=== PATIENT | female | born 1985 | race African-American/Black ===

== ENCOUNTER 2016-04-24 07:18 | Emergency (ER) | payer BC, OTHER ==
[~2016-04-24] VITALS: Ht 152.4 cm; Wt 43.5 kg
[~2016-04-24 07:18] MED LIST: ACET500T33 PO; HYDR-971 PO; NAPR550T PO; ORPH100T PO; bc powder PO
[2016-04-24 07:37] LABS: BILIRUBIN,URINE NEGATIVE (NEG); GLUCOSE,URINE NEGATIVE (NEG); NITRITE,URINE NEGATIVE (NEG); PH,URINE 5.5; PROTEIN,URINE NEGATIVE (NEG-TRACE); UROBILINOGEN,URINE 0.2 mg/dL (0.2 mg/dL)
[2016-04-24] MEDS ORDERED: PANTOPRAZOLE 40 MG TABLET. PO ONE (07:45)
[2016-04-24] MEDS ORDERED: ONDANSETRON ODT 4 MG TAB.RAPDIS PO ONE (07:45)
--- NOTE | 2016-04-24 07:51 | PHYS DOC ---
Past Medical History Past Medical History: No Pertinent History Past Surgical History: Tubal ligation Alcohol Use: Occasionally Drug Use: None Adult General Chief Complaint Chief Complaint: ABDOMINAL PAIN HPI HPI Patient is a 31 year old female presents to the emergency department with a history of right upper quadrant abdominal pain that is sharp in nature and radiates into her back. Patient states she has not taken anything for the pain. She states she thought she was going to have diarrhea today but had a normal stool. Patient states she was nauseated although she caused herself to vomit by placing her finger into her throat. She states she did not have any relief after vomiting. Patient states she had fried pork chops last night. Patient also states she tried to cereal this morning but when she vomited this is what came up. She denies fever, or chills. Review of Systems Review of Systems Constitutional: Denies fever or chills [] Eyes: Denies change in visual acuity, redness, or eye pain [] HENT: Denies nasal congestion or sore throat [] Respiratory: Denies cough or shortness of breath [] Cardiovascular: No additional information not addressed in HPI [] GI: abdominal pain, nausea, caused herself to vomit today, denies bloody stools or diarrhea [] : Denies dysuria or hematuria [] Musculoskeletal: Denies back pain or joint pain [] Integument: Denies rash or skin lesions [] Neurologic: Denies headache, focal weakness or sensory changes [] Current Medications Current Medications Current Medications Medications (Trade) Dose Ordered Sig/Maciej Start Time Stop Time Status Last Admin Dose Admin Azithromycin (Zithromax) 1,000 mg 1X ONCE 04/24/16 08:30 04/24/16 08:31 DC Ceftriaxone Sodium (Rocephin Im) 250 mg 1X ONCE 04/24/16 08:30 04/24/16 08:31 DC Lidocaine HCl (Xylocaine-Mpf 1% Vial) 2 ml STK-MED ONCE 04/24/16 08:31 04/24/16 08:32 DC Metronidazole (Flagyl) 2,000 mg 1X ONCE 04/24/16 08:30 04/24/16 08:31 DC Ondansetron HCl (Zofran Odt) 4 mg 1X ONCE 04/24/16 07:45 04/24/16 07:46 DC 04/24/16 07:49 4 MG Pantoprazole Sodium (Protonix) 40 mg 1X ONCE 04/24/16 07:45 04/24/16 07:46 DC 04/24/16 07:51 40 MG Allergies Allergies Allergies Coded Allergies Type Severity Reaction Last Updated Verified Sulfa (Sulfonamide Antibiotics) Allergy Intermediate hives 04/21/14 Yes meperidine Adverse Reaction Intermediate hallucinations 04/24/16 Yes Physical Exam Physical Exam Constitutional: Well developed, well nourished, no acute distress, non-toxic appearance. [] HENT: Normocephalic, atraumatic, bilateral external ears normal, oropharynx moist, no oral exudates, nose normal. [] Eyes: PERRLA, EOMI, conjunctiva normal, no discharge. [] Neck: Normal range of motion, no tenderness, supple, no stridor. [] Cardiovascular:Heart rate regular rhythm, no murmur [] Lungs & Thorax: Bilateral breath sounds clear to auscultation [] Abdomen: Bowel sounds hypoactive, soft, right upper quadrant tenderness, no masses, no pulsatile masses. No rebound tenderness, no guarding noted Skin: Warm, dry, no erythema, no rash. [] Back: No tenderness Extremities: No tenderness, no cyanosis, no clubbing, ROM intact, no edema. [] Neurologic: Alert and oriented X 3, normal motor function, normal sensory function, no focal deficits noted. [] Psychologic: Affect normal, judgement normal, mood normal. [] Current Patient Data Vital Signs Vital Signs Date Time Temp Pulse Resp B/P Pulse Ox O2 Delivery O2 Flow Rate FiO2 04/24/16 07:31 98.2 99 16 116/80 100 Room Air 98.2 Lab Values Laboratory Tests Test 04/24/16 07:22 04/24/16 07:40 Urine Collection Type Void Urine Color Yellow Urine Clarity Cloudy Urine pH 5.5 Urine Specific [place] 1.025 Urine Protein Negativemg/dL (NEG-TRACE) Urine Glucose (UA) Negativemg/dL (NEG) Urine Ketones (Stick) Negativemg/dL (NEG) Urine Blood Negative (NEG) Urine Nitrite Negative (NEG) Urine Bilirubin Negative (NEG) Urine Urobilinogen Dipstick 0.2mg/dL (0.2 mg/dL) Urine Leukocyte Esterase Large (NEG) Urine RBC 1-2/HPF (0-2) Urine WBC 11-20/HPF (0-4) Urine Squamous Epithelial Cells Many/LPF Urine Bacteria Moderate/HPF (0-FEW) Urine Mucus Marked/LPF Urine Trichomonas Present Urine Test Negative (NEG) White Blood Count 7.2x10^3/uL (4.0-11.0) Red Blood Count 4.43x10^6/uL (3.50-5.40) Hemoglobin 11.5g/dL (12.0-15.5) L Hematocrit 36.9% (36.0-47.0) Mean Corpuscular Volume 83fL (79-100) Mean Corpuscular Hemoglobin 26pg (25-35) Mean Corpuscular Hemoglobin Concent 31g/dL (31-37) Red Cell Distribution Width 15.2% (11.5-14.5) H Platelet Count 303x10^3/uL (140-400) Neutrophils (%) (Auto) 83% (31-73) H Lymphocytes (%) (Auto) 10% (24-48) L Monocytes (%) (Auto) 6% (0-9) Eosinophils (%) (Auto) 0% (0-3) Basophils (%) (Auto) 0% (0-3) Neutrophils # (Auto) 6.0x10^3uL (1.8-7.7) Lymphocytes # (Auto) 0.7x10^3/uL (1.0-4.8) L Monocytes # (Auto) 0.4x10^3/uL (0.0-1.1) Eosinophils # (Auto) 0.0x10^3/uL (0.0-0.7) Basophils # (Auto) 0.0x10^3/uL (0.0-0.2) Sodium Level 144mmol/L (136-145) Potassium Level 3.7mmol/L (3.5-5.1) Chloride Level 108mmol/L (98-107) H Carbon Dioxide Level 25mmol/L (21-32) Anion Gap 11 (6-14) Blood Urea Nitrogen 24mg/dL (7-20) H Creatinine 0.6mg/dL (0.6-1.0) Estimated GFR (Cockcroft-Gault) 140.2 BUN/Creatinine Ratio 40 (6-20) H Glucose Level 97mg/dL (70-99) Calcium Level 9.4mg/dL (8.5-10.1) Total Bilirubin 0.5mg/dL (0.2-1.0) Aspartate Amino Transferase (AST) 17U/L (15-37) Alanine Aminotransferase (ALT) 16U/L (14-59) Alkaline Phosphatase 73U/L (46-116) Total Protein 8.5g/dL (6.4-8.2) H Albumin 4.2g/dL (3.4-5.0) Albumin/Globulin Ratio 1.0 (1.0-1.7) Amylase Level 79U/L (25-115) Lipase 125U/L (73-393) Laboratory Tests 04/24/16 07:40 Laboratory Tests 04/24/16 07:40 EKG EKG [] Radiology/Procedures Radiology/Procedures [facility] [address] [place] [address] IMAGING REPORT Signed PATIENT: QUITA RICHARDS ACCOUNT: [id number] : 1985 LOCATION: ER AGE: 31 SEX: F EXAM STATUS: REG ER ORD. PHYSICIAN: ELVIRA RUSSO NP REASON: abdominal pain right side mainly upper quadrant PROCEDURE: ABDOMEN LTD Right upper quadrant abdominal ultrasound, 04/24/2016: History: Pain The gallbladder is within normal limits in size. There is no sonographic evidence of cholelithiasis. The gallbladder saldivar are not thickened. No bile duct dilatation is seen. The visualized portions of the liver, pancreas and right kidney are unremarkable. IMPRESSION: No significant abnormality is detected. DICTATED and SIGNED BY: PACHECO CESAR MD DATE: 04/24/16 0810 CC: ELVIRA RUSSO [employer]; UNKNOWN PCP NAME ~ [] Course & Med Decision Making Course & Med Decision Making Pertinent Labs and Imaging studies reviewed. (See chart for details) She was asked to for urinary tract infection, as well as Trichomonas. Patient states that she has not been sexually active for over a year. Patient's ultrasound was negative. CBC CMP were normal. She was provided with Zofran here in the emergency department and Protonix to help with her upper abdominal pain and discomfort. She'll be provided Rocephin IM Zithromax and Flagyl for sexually transmitted infections. Patient denies vaginal discharge therefore vaginal exam was deferred. She will be placed on Macrobid at discharge for urinary tract infection. Patient agrees with discharge instructions treatment regimens and follow-up recommendations. [] Dragon Disclaimer Dragon Disclaimer This electronic medical record was generated, in whole or in part, using a voice recognition dictation system. Departure Departure Impression: Primary Impression: UTI (urinary tract infection) Additional Impression: Trichomoniasis, urogenital Disposition: HOME, SELF-CARE Condition: STABLE Referrals: UNKNOWN PCP NAME (PCP) Patient Instructions: Sexually Transmitted Disease, [id number], Urinary Tract Infection, [id number] Additional Instructions: Home to rest. Medications as prescribed. Drink plenty fluids such as water and cranberry juice. Avoid cranberry juice cocktail, carbonated beverages, citrus fruits, caffeine and alcohol disease are considered irritants to the bladder. You will need to notify your sexual partners that you have tested positive for Trichomonas which is a sexual transmitted infection. Do not have any sexual intercourse until you partners have been treated. Follow-up through primary care physician in the next week. Return back to emergency department sign symptoms of become worse. Scripts Nitrofurantoin Monohyd/M-Cryst (Macrobid 100 Mg Capsule)100 Mg Capsule1 Cap PO BID #[id number] CAP Prov:ELVIRA RUSSO NP 04/24/16 Problem Qualifiers ELVIRA RUSSO NP Apr 24, 2016 07:51
[2016-04-24 07:52] LABS: BASO % 0 % (0-3); EOS % 0 % (0-3); HEMATOCRIT 36.9 % (36.0-47.0); HEMOGLOBIN 11.5 g/dL (12.0-15.5); LYMPH # 0.7 x10^3/uL (1.0-4.8); LYMPH % 10 % (24-48); MEAN CORPUSCULAR HEMOGLOBIN 26 pg (25-35); MEAN CORPUSCULAR HGB CONC 31 g/dL (31-37); MEAN CORPUSCULAR VOLUME 83 fL (79-100); MONO % 6 % (0-9); NEUT % 83 % (31-73); PLATELET COUNT 303 x10^3/uL (140-400); RED BLOOD COUNT 4.43 x10^6/uL (3.50-5.40); RED CELL DISTRIBUTION WIDTH 15.2 % (11.5-14.5); WHITE BLOOD COUNT 7.2 x10^3/uL (4.0-11.0)
[2016-04-24 07:53] LABS: BACTERIA,URINE MODERATE /HPF (0-FEW); SQUAMOUS EPITHELIAL CELL,UR MANY /LPF
[2016-04-24 07:54] LABS: TRICHOMONAS,URINE PRESENT
[2016-04-24 07:57] LABS: NEG OBC UR NEG; POS OBC UR POS
[2016-04-24 08:01] LABS: CALCIUM 9.4 mg/dL (8.5-10.1); CREATININE 0.6 mg/dL (0.6-1.0); GFR 140.2; POTASSIUM 3.7 mmol/L (3.5-5.1)
[2016-04-24 08:07] LABS: ALBUMIN 4.2 g/dL (3.4-5.0); TOTAL BILIRUBIN 0.5 mg/dL (0.2-1.0); TOTAL PROTEIN 8.5 g/dL (6.4-8.2)
--- NOTE | 2016-04-24 08:13 | RAD ---
Right upper quadrant abdominal ultrasound, 04/24/2016: History: Pain The gallbladder is within normal limits in size. There is no sonographic evidence of cholelithiasis. The gallbladder saldivar are not thickened. No bile duct dilatation is seen. The visualized portions of the liver, pancreas and right kidney are unremarkable. IMPRESSION: No significant abnormality is detected.
[2016-04-24] MEDS ORDERED: AZITHROMYCIN 250 MG TABLET PO ONE (08:30)
[2016-04-24] MEDS ORDERED: METRONIDAZOLE 500 MG TABLET. PO ONE (08:30)
[2016-04-24] MEDS ORDERED: CEFTRIAXONE IM 250 MG VIAL. IM ONE (08:30)
[2016-04-24] MEDS ORDERED: LIDOCAINE 1% PF 2 ML VIAL. ONE (08:31)
[2016-04-24] MEDS ORDERED: NITR100C62 PO (08:38)
[2016-04-24 08:45] VITALS: BP 112/71
== END 2016-04-24 09:02 | disposition home or self-care (01) ==
LOC: ER 07:18
DX: N39.0 Urinary tract infection, site not specified (principal); A59.09 Other urogenital trichomoniasis; Z88.2 Allergy status to sulfonamides; Z88.5 Allergy status to narcotic agent
CPT/HCPCS: 36415; 76705; 80053; 81001; 81025; 82150; 83690; 85027; 87086; 96372; 99285; J0696; Q0144; Q0162

== ENCOUNTER 2017-05-21 21:39 | Emergency (ER) | payer BC ==
[2017-05-21 23:00] LABS: INFLUENZA A PATIENT NEGATIVE (NEGATIVE); INFLUENZA B PATIENT NEGATIVE (NEGATIVE); OBC FLU VALID
== END 2017-05-21 23:35 | disposition home or self-care (01) ==
LOC: ER 21:39
DX: B34.9 Viral infection, unspecified (principal); Z88.2 Allergy status to sulfonamides; Z88.8 Allergy status to other drugs, medicaments and biological substances; Z98.51 Tubal ligation status
CPT/HCPCS: 71046; 87804; 87804-59; 99285-25

== ENCOUNTER 2017-07-23 19:47 | Emergency (ER) | payer BC ==
[2017-07-26 16:25] LABS: HERPES SIMPLEX TYPE 1 Negative (Negative); HERPES SIMPLEX TYPE 2 Positive (Negative)
== END 2017-07-23 20:25 | disposition home or self-care (01) ==
LOC: ER 19:47
DX: R23.8 Other skin changes (principal); N89.8 Other specified noninflammatory disorders of vagina; Z88.2 Allergy status to sulfonamides; Z88.1 Allergy status to other antibiotic agents
CPT/HCPCS: 87529; 99283

== ENCOUNTER 2018-05-20 22:18 | Emergency (ER) | payer BC ==
[2017-07-23 20:09] VITALS: BP 124/77
[~2018-05-20 22:18] MED LIST changes: +ACYC800T PO; +HYDR-3164 PO; -HYDR-971 PO; +NAPR-682 PO; +NAPR-683 PO; -NAPR550T PO; +NITR100C62 PO; +OSEL75CA PO
[2018-05-20] MEDS ORDERED: diphenhydrAMINE 50 MG/ML VIAL IV ONE (23:00)
[2018-05-20] MEDS ORDERED: IV NORMAL SALINE 1000ML BAG 1,000 ML IV ONE (23:00)
[2018-05-20] MEDS ORDERED: KETOROLAC 15 MG/ML VIAL. IV ONE (23:00)
[2018-05-20] MEDS ORDERED: METOCLOPRAMIDE HCL 10 MG/2 ML VIAL. IV ONE (23:00)
[2018-05-20] MEDS ORDERED: METOCLOPRAMIDE HCL 10 MG/2 ML VIAL. ONE ×2 (23:33→23:45)
[2018-05-20] MEDS ORDERED: KETOROLAC 15 MG/ML VIAL. ONE ×2 (23:33→23:45)
[2018-05-20] MEDS ORDERED: diphenhydrAMINE 50 MG/ML VIAL ONE ×2 (23:33→23:45)
[2018-05-20] MEDS ORDERED: IV NORMAL SALINE 1,000 ML BAG ONE (23:45)
[2018-05-21 06:19] LABS: ALBUMIN 3.9 g/dL (3.4-5.0); CALCIUM 9.2 mg/dL (8.5-10.1); CREATININE 0.6 mg/dL (0.6-1.0); DIRECT BILIRUBIN 0.1 mg/dL (0.0-0.2); GFR 138.5; INFLUENZA A PATIENT NEGATIVE (NEGATIVE); INFLUENZA B PATIENT NEGATIVE (NEGATIVE); POTASSIUM 3.8 mmol/L (3.5-5.1); TOTAL BILIRUBIN 0.3 mg/dL (0.2-1.0); TOTAL PROTEIN 7.9 g/dL (6.4-8.2)
[2018-05-21 06:22] LABS: BACTERIA,URINE 0 /HPF (0-FEW); BILIRUBIN,URINE NEGATIVE (NEG); CLARITY,URINE CLEAR; COLOR,URINE YELLOW; NITRITE,URINE NEGATIVE (NEG); PROTEIN,URINE NEGATIVE (NEG-TRACE); RBC,URINE OCC /HPF (0-2); SQUAMOUS EPITHELIAL CELL,UR FEW /LPF; WBC,URINE OCC /HPF (0-4)
[2018-05-21 06:28] LABS: BASO % 0 % (0-3); EOS % 0 % (0-3); HEMATOCRIT 32.7 % (36.0-47.0); HEMOGLOBIN 10.5 g/dL (12.0-15.5); LYMPH # 0.2 x10^3/uL (1.0-4.8); LYMPH % 6 % (24-48); MEAN CORPUSCULAR HEMOGLOBIN 26 pg (25-35); MEAN CORPUSCULAR HGB CONC 32 g/dL (31-37); MEAN CORPUSCULAR VOLUME 81 fL (79-100); MONO # 0.2 x10^3/uL (0.0-1.1); MONO % 4 % (0-9); NEUT # 3.6 x10^3uL (1.8-7.7); NEUT % 90 % (31-73); PLATELET COUNT 261 x10^3/uL (140-400); RED BLOOD COUNT 4.01 x10^6/uL (3.50-5.40); RED CELL DISTRIBUTION WIDTH 14.1 % (11.5-14.5)
[2018-05-21 06:29] LABS: % LYMPHS 6 % (24-48); % MONOS 4 % (0-10)
[2018-05-21 08:49] LABS: PLT ESTIMATE ADEQUATE (ADEQUATE)
[2018-05-21 08:55] LABS: % BANDS 5 % (0-9); % SEGS 85 % (35-66)
[2018-05-21 08:56] LABS: OVALOCYTES FEW
== END 2018-05-21 00:44 | disposition home or self-care (01) ==
LOC: ER 22:18
DX: G43.909 Migraine, unspecified, not intractable, without status migrainosus (principal); R00.0 Tachycardia, unspecified; Z98.51 Tubal ligation status; Z88.2 Allergy status to sulfonamides; Z88.8 Allergy status to other drugs, medicaments and biological substances
CPT/HCPCS: 36415; 80048; 80076; 81001; 81025; 83690; 85007; 85025; 87804; 96374; 96375; 99283; J1200; J1885; J2765; J7030; 96372